=== PATIENT | male | born 1985 | race Caucasian/White ===

== ENCOUNTER 2017-02-12 16:27 | Emergency (ER) | payer MEDICAID ==
[2017-02-12] MEDS ORDERED: LORAZEPAM 2 MG/ML VIAL IV ONE (17:11)
[2017-02-12 17:32] LABS: BASO % 0.1 % (0-6); EOS % 0.8 % (0-6); GRAN % 60.4 % (47-80); HEMATOCRIT 39.6 % (42.0-52.0); HEMOGLOBIN 13.3 gm/dl (14.0-18.0); LYMPH % 29.6 % (16-45); MEAN CELL VOLUME 98.3 fl (81-97); MEAN CORPUSCULAR HGB CONC 33.6 g/dl (32-36); MEAN PLATELET VOLUME 12.2 fl (7.4-10.4); MONO % 9.1 % (0-9); PLATELET COUNT 162 K/uL (130-400); RED BLOOD COUNT 4.03 M/uL (4.40-5.70); RED CELL DISTRIBUTION WIDTH 12.5 % (11.5-14.5); WHITE BLOOD COUNT W/O DIFF 7.5 K/uL (4.2-12.2)
[2017-02-12 17:46] LABS: ANION GAP 9.1 (7-16); BLOOD UREA NITROGEN 11 mg/dL (9-20); CARBON DIOXIDE 21.9 mmol/L (22-30); CREATINE PHOSPHOKINASE 515 U/L (55-170); CREATININE 0.7 mg/dL (0.66-1.25); EST GLOMERULAR FILTRATION RATE > 60 ml/min; GLUCOSE,RANDOM 81 mg/dL (70-110)
[2017-02-12 18:02] LABS: TROPONIN I < 0.012 ng/mL (0.00-0.034)
--- NOTE | 2017-02-12 18:32 | Emergency Department Record ---
History of Present Illness - General Chief Complaint: Mental health evaluation Stated Complaint: EMOTIONAL DISTRESS Time Seen by Provider: 02/12/17 17:08 Source: Patient, Family Mode of Arrival: EMS Limitations: No limitations Travel/Exposure to [place] Within 21 Days of Symptoms: No - History of Present Illness Initial Comments: pt was brought in by ems for grief and anxiety over loved one that . pt and his so were snorting cocaine and adderall when his friend became unresponsive. pt did cpr on him but he remained unresponsive. pt was taken to [facility] last night. mother states that pt fell in front of her today and had shaking movements. MD Complaint: Feels depressed Onset/Timin -: Days(s) Associated Psychiatric Symptoms: Other History of same: No Quality: Intermittent Improves With: None Worsens With: None Context: Significant life stressor, Other Associated Symptoms: Denies other symptoms Treatments Prior to Arrival: None Details of Plan: Pt states that he does not intend to hurt himself but he states that "I don't know how to go on without my partner". - [place] Coma Scale Eye Response: (4) Open spontaneously Motor Response: (6) Obeys commands Verbal Response: (5) Oriented Jonathan Total: 15 - Related Data Previous Rx's Medication Instructions Recorded Lorazepam [Ativan] 0.5 mg PO Q6HR PRN #7 tablet 02/12/17 Allergies Allergy/AdvReac Type Severity Reaction Status Date / Time No Known Drug Allergies Allergy Verified 02/12/17 18:57 Review of Systems Reviewed: No additional complaints except as noted below Constitutional: Reports: As per HPI. Denies: Chills, Fever, Malaise, Night sweats, Weakness, Weight change Eyes: Reports: As per HPI. Denies: Eye discharge, Eye pain, Photophobia, Vision change ENT: Reports: As per HPI. Denies: Congestion, Dental pain, Ear pain, Epistaxis , Hearing loss, Throat pain Respiratory: Reports: As per HPI. Denies: Cough, Dyspnea, Hemoptysis, Stridor, Wheezes Cardiovascular: Reports: As per HPI. Denies: Arrhythmia, Chest pain, Dyspnea on exertion, Edema, Murmurs, Orthopnea, Palpitations, Paroxysmal nocturnal dyspnea, Rheumatic Fever, Syncope Endocrine: Reports: As per HPI. Denies: Fatigue, Heat or cold intolerance, Polydipsia, Polyuria Gastrointestinal: Reports: As per HPI. Denies: Abdominal pain, Constipation, Diarrhea, Hematemesis, Hematochezia, Melena, Nausea, Vomiting Genitourinary: Reports: As per HPI. Denies: Dysuria, Frequency, Hematuria, Incontinence, Retention, Testicular pain, Testicular mass, Urgency Musculoskeletal: Reports: As per HPI. Denies: Arthralgia, Back pain, Gout, Joint swelling, Myalgia, Neck pain Skin: Reports: As per HPI. Denies: Bruising, Change in color, Change in hair/ nails, Lesions, Pruritus, Rash Neurological: Reports: As per HPI. Denies: Abnormal gait, Confusion, Headache, Numbness, Paresthesias, Seizure, Tingling, Tremors, Vertigo, Weakness Psychiatric: Reports: As per HPI, Anxiety, Depression. Denies: Auditory hallucinations, Homicidal thoughts, Suicidal thoughts, Visual hallucinations Hematological/Lymphatic: Reports: As per HPI. Denies: Anemia, Blood Clots, Easy bleeding, Easy bruising, Swollen glands Past Medical History - SOCIAL HISTORY Smoking Status: Never smoker Alcohol Use: None Drug Use: Occassional Drug Use Detail:: Cocaine - RESPIRATORY Hx Respiratory Disorders: No - CARDIOVASCULAR Hx Cardio Disorders: No - NEURO Hx Neuro Disorders: No - GI Hx GI Disorders: No - Hx Genitourinary Disorders: No - ENDOCRINE Hx Endocrine Disorders: No - MUSCULOSKELETAL Hx Musculoskeletal Disorders: No - PSYCH Hx Psych Problems: No - HEMATOLOGY/ONCOLOGY Hx Hematology/Oncology Disorders: No Family Medical History Any Significant Family History?: Yes Hx Anxiety: Mother Physical Exam - General General Appearance: Alert, Oriented x3, Cooperative, Moderate distress - Head Head exam: Normal inspection - Eye Eye exam: Normal appearance, PERRL, EOMI Pupils: Normal accommodation - ENT ENT exam: Normal exam, Mucous membranes moist, Normal external ear exam, Normal orophraynx, TM's normal bilaterally Ear exam: Normal external inspection. negative: External canal tenderness Nasal Exam: Normal inspection. negative: Discharge, Sinus tenderness Mouth exam: Normal external inspection, Tongue normal Teeth exam: Normal inspection. negative: Dental caries Throat exam: Normal inspection. negative: Tonsillar erythema, Tonsillar exudate - Neck Neck exam: Normal inspection, Full ROM. negative: Tenderness - Respiratory Respiratory exam: Normal lung sounds bilaterally. negative: Respiratory distress - Cardiovascular Cardiovascular Exam: Regular rate, Normal rhythm, Normal heart sounds - GI/Abdominal GI/Abdominal exam: Soft, Normal bowel sounds. negative: Tenderness - Rectal Rectal exam: Deferred - exam: Deferred - Extremities Extremities exam: Normal inspection, Full ROM, Normal capillary refill. negative: Tenderness - Back Back exam: Reports: Normal inspection, Full ROM. Denies: Muscle spasm, Rash noted, Tenderness - Neurological Neurological exam: Alert, CN II-XII intact, Normal gait, Oriented X3 - Psychiatric Psychiatric exam: Depressed, Other (tearful) - Skin Skin exam: Dry, Intact, Normal color, Warm Course Vital Signs 02/12/17 16:35 Temperature 97.8 F Pulse Rate 91 H Respiratory 20 Rate Blood Pressure 118/67 Pulse Ox 96 - Reevaluation(s) Reevaluation #1: 02/12/17 18:44 pt feels better. d/w [facility] to obtain services. mom is going to drive him there. pt denies being suicidal. Medical Decision Making - Lab Data Result diagrams: 02/12/17 17:10 02/12/17 17:10 Lab Results 02/12/17 02/12/17 Range/Units 17:10 17:10 WBC 7.5 (4.2-12.2) K/uL RBC 4.03 L (4.40-5.70) M/uL Hgb 13.3 L (14.0-18.0) gm/dl Hct 39.6 L (42.0-52.0) % MCV 98.3 H (81-97) fl MCH 33.0 (27-33) pg MCHC 33.6 (32-36) g/dl RDW 12.5 (11.5-14.5) % Plt Count 162 (130-400) K/uL MPV 12.2 H (7.4-10.4) fl Gran % 60.4 (47-80) % Lymphocytes % 29.6 (16-45) % Monocytes % 9.1 H (0-9) % Eosinophils % 0.8 (0-6) % Basophils % 0.1 (0-6) % Sodium 135 L (136-145) mmol/L Potassium 3.4 L (3.5-5.1) mmol/L Chloride 104 (98-107) mmol/L Carbon Dioxide 21.9 L (22-30) mmol/L Anion Gap 9.1 (7-16) BUN 11 (9-20) mg/dL Creatinine 0.7 (0.66-1.25) mg/dL Estimated GFR > 60 ml/min Random Glucose 81 (70-110) mg/dL Calcium 9.0 (8.5-10.1) mg/dL Creatine Kinase 515 H (55-170) U/L CK-MB (CK-2) 8.0 H (0-6) ug/L CK-MB (CK-2) Rel Index 1.50 (0-4) % Troponin I < 0.012 (0.00-0.034) ng/mL Disposition Disposition: Discharge Clinical Impression: Grief reaction, Substance abuse Disposition: Home, Self-Care Condition: (1) Good Instructions: Grief and Loss (ED), Anxiety (ED) Additional Instructions: go directly to [facility] for further assistance. return sooner if worse Prescriptions: Lorazepam [Ativan] 0.5 mg PO Q6HR PRN #7 tablet PRN Reason: Anxiety Forms: Patient Portal Access
[2017-02-12 18:57] LABS: THC SCREEN URINE DETECTED
[2017-02-12 18:58] LABS: AMPHETAMINE SCREEN URINE DETECTED; BARBITURATE SCREEN URINE NOT DETECTED; BENZODIAZEPINE SCREEN URINE DETECTED; COCAINE SCREEN URINE NOT DETECTED; METHADONE SCREEN URINE NOT DETECTED; METHAMPHETAMINE SCREEN NOT DETECTED; OPIATE SCREEN URINE NOT DETECTED; OXYCODONE SCREEN URINE NOT DETECTED; PHENCYCLIDINE SCREEN URINE NOT DETECTED; PROPOXYPHENE SCREEN URINE NOT DETECTED; TRICYCLIC ANTIDEPRESSANT SCRN NOT DETECTED
== END 2017-02-12 19:13 | disposition home or self-care (01) ==
LOC: ER 16:27
DX: F43.23 Adjustment disorder with mixed anxiety and depressed mood (principal); R25.1 Tremor, unspecified; F15.10 Other stimulant abuse, uncomplicated; F12.10 Cannabis abuse, uncomplicated; F13.10 Sedative, hypnotic or anxiolytic abuse, uncomplicated
CPT/HCPCS: 99284 ×2; 96374; 82550; 85025; 82553; 84484; 80048; 80305; 70450; 93005; 93010; G0480; J2060; 80320